=== PATIENT | male | born 2000 ===

== ENCOUNTER 2022-04-13 16:39 | Emergency (ER) | payer SELFPAY ==
--- NOTE | 2022-04-13 17:16 | PC.NURSE ---
pt reports i'm good. i'm heading out . pt seen ambulatory with a steady gait and in no distress out of department.
== END 2022-04-13 17:16 | disposition left against medical advice (07) ==
LOC: ANHED 17:28
DX: Z53.21 Procedure and treatment not carried out due to patient leaving prior to being seen by health care provider (principal)
CPT/HCPCS: 99199